=== PATIENT | male | born 1990 | race Caucasian/White ===

== ENCOUNTER 2019-08-29 21:04 | Emergency (ER) | payer SELFPAY ==
[2019-08-29 21:20] VITALS: BP 134/72; PULSE 88; RESP 18; TEMP 36.5; O2SAT 96; BMI 31.4
--- NOTE | 2019-08-29 21:38 | XR_ITS ---
WS: [id number] RIGHT KNEE: 3 VIEW(S) TECHNIQUE: AP, oblique(s) and lateral. HISTORY: injury COMPARISON: None available. No fracture or dislocation. No joint space narrowing or osteophytes. No joint effusion. No soft tissue abnormality. XR/XR knee RT 3V* [id number] IMPRESSION: Normal RIGHT knee.
--- NOTE | 2019-08-29 21:38 | CTR_ITS ---
PROCEDURE INFORMATION: Exam: CT Head Without Contrast Exam date and time: 08/29/2019 9:46 PM Age: 29 years old Clinical indication: Injury or trauma; Fall; Additional info: Seizure TECHNIQUE: Imaging protocol: Computed tomography of the head without contrast. Radiation optimization: All CT scans at this facility use at least one of these dose optimization techniques: automated exposure control; mA and/or kV adjustment per patient size (includes targeted exams where dose is matched to clinical indication); or iterative reconstruction. COMPARISON: No relevant prior studies available. RADIATION DOSE METRICS: Total DLP (mGy-cm): 882.31 FINDINGS: Brain: No acute intracranial hemorrhage or mass effect. No definite acute infarct by CT. MRI could be more sensitive/specific for detection, as clinically directed. Ventricles: Ventricle size is normal for age. Bones/joints: No definite acute skull fracture. Sinuses: Included paranasal sinuses are essentially clear. Mastoid air cells: No significant acute finding. CT/CT head wo con* [id number] IMPRESSION: 1. No acute intracranial hemorrhage or mass effect. 2. No definite acute infarct by CT, see above. 3. Other findings discussed above. Radiation Dose CTDIVOL = (mGy): DLP = 882.31 (mGy-cm)
--- NOTE | 2019-08-29 21:42 | CTR_ITS ---
PROCEDURE INFORMATION: Exam: CT Cervical Spine Without Contrast Exam date and time: 08/29/2019 9:46 PM Age: 29 years old Clinical indication: Injury or trauma; Fall; Initial encounter; Blunt trauma; Injury details: PT ETOH TECHNIQUE: Imaging protocol: Computed tomography images of the cervical spine without contrast. Radiation optimization: All CT scans at this facility use at least one of these dose optimization techniques: automated exposure control; mA and/or kV adjustment per patient size (includes targeted exams where dose is matched to clinical indication); or iterative reconstruction. COMPARISON: No relevant prior studies available. RADIATION DOSE METRICS: Total DLP (mGy-cm): 950.88 FINDINGS: Vertebrae: On axial CT images, no definite acute fracture is visible. Sagittal and coronal reconstructions show no fracture or subluxation. Discs/Spinal canal/Neural foramina: No definite/significant disc herniation by CT, MRI could be more sensitive if clinically indicated. Lungs: No significant acute abnormality in the upper lungs. CT/CT cervical spin wo con* [id number] IMPRESSION: 1. No definite acute fracture or subluxation by CT. 2. Other findings discussed above. Radiation Dose CTDIVOL = (mGy): DLP = 950.88 (mGy-cm)
--- NOTE | 2019-08-29 21:43 | XR_ITS ---
WS: [id number] PORTABLE CHEST HISTORY: fall COMPARISON: None available. Lung volumes are decreased. No consolidation. No pleural effusion or pneumothorax. Cardiac size: Normal. Mediastinum/Aorta: Normal mediastinum. No osseous abnormality seen. XR/XR chest 1V portable [id number] IMPRESSION: Unremarkable portable chest.
[2019-08-29] MEDS: nicotine 21 mg Patch 1 PATCH TRANSDERMA (21:51)
[2019-08-29 22:06] LABS: Basophils # 0.1 10^3/uL (0.0-0.1); Basophils % 0.6 %; Eosinophils # 0.2 10^3/uL (0.0-0.8); Eosinophils % 1.7 %; Hematocrit 45.1 % (42.0-52.0); Hemoglobin 15.1 g/dL (11.7-16.6); Lymphocytes # 2.4 10^3/uL (0.8-4.8); Lymphocytes % 27.3 %; Mean Corpuscular HGB Conc 33.5 g/dL (30.0-36.0); Mean Corpuscular Hemoglobin 30.8 pg (28.0-34.0); Mean Platelet Volume 10.2 fL (7.4-10.4); Monocytes # 0.6 10^3/uL (0.2-0.9); Monocytes % 6.3 %; Neutrophils # 5.5 10^3/uL (1.8-7.7); Neutrophils % 63.6 %; Nucleated Red Blood Cells % 0 %; Platelet Count 233 10^3/cmm (130-400); Red Cell Distribution Width 12.7 % (12.1-15.1); White Blood Count 8.7 10^3/uL (4.0-10.0)
--- NOTE | 2019-08-29 22:10 | ED_ITS ---
Documented by User: Willow Martinez 08/30/19 11:17 HPI - Seizure General: Chief Complaint: Seizure Stated Complaint: ETOH Time Seen by Provider: 08/29/19 21:29 Source: patient and EMS Mode of arrival: EMS Limitations: no limitations History of Present Illness: HPI Narrative: Solo is a 29-year-old male who comes in with the complaint of intoxication, and possibly having a seizure and right knee injury. Patient states that he was at a friend's house and was celebrating his birthday and had a small amount of alcohol. He does not remember falling or injuring his knee. The patient has a history of a previous seizure. He does not take any antiseizure medications. He denies any chest, back or abdominal discomfort. Denies any other complaints. Associated symptoms: Deny chest pain, chills, confusion, diaphoresis, fever(s), malaise or syncope Review of Systems Const: Denies: fever(s), chills, body aches, fatigue, malaise or diaphoresis Eyes: Denies: change in vision, blurry vision, blind spots, photophobia, eye discharge or eye redness ENMT: Denies: throat pain, odynophagia, hoarseness, swelling of lips/tongue, oral sores, ear or mastoid pain, ear discharge, change in hearing or nasal discharge Card: Denies: chest pain, palpitations, irregular heart rhythm, edema, lightheadedness, syncope, pre-syncope, dyspnea on exertion or orthopnea Resp: Denies: dyspnea, productive cough, non-productive cough, wheezing, hemoptysis or chest congestion GI: Denies: abdominal pain, nausea, vomiting, hematemesis, coffee ground emesis, heartburn, diarrhea, constipation, GI cramping, hematochezia or melena : Denies: flank pain, dysuria, urinary frequency, urinary urgency or hematuria Musc: Reports: extremity pain and joint pain; Denies: neck pain, back pain, extremity swelling, joint swelling, joint redness, joint warmth or joint stiffness Skin/Breast: Denies: rash, pruritus, erythema, skin tenderness or jaundice Neuro: Reports: seizure-like activity; Denies: headache(s), numbness in extremities, weakness in extremities, sensory changes, lack of coordination, difficulty walking, dizziness, vertigo, confusion or Slurred speech present Isaias/Lymph: Denies: easy bruising, easy bleeding, petechiae, purpura or enlarged lymph nodes All/Imm: Denies: urticaria, throat swelling, tongue swelling, facial swelling or acute wheezing PFSH ED PFSH: Medical History (Updated 08/29/19 @ 23:17 by Willow Martinez) Seizure Social History (Updated 08/30/19 @ 11:14 by Willow Martinez) Smoking and tobacco status: current every day smoker Alcohol intake: current Physical Exam Const: COMMON NORMALS: no acute distress, patient oriented x3, no limitations, healthy appearing and well nourished GENERAL APPEARANCE: cooperative, well kempt and well developed HENMT: COMMON NORMALS: normocephalic, atraumatic, external ears normal, EAC's normal and Normal external nose present HEAD & SCALP: normal to inspection, normocephalic and atraumatic FACE & SINUS: normal facial exam and face symmetric NOSE: Normal external nose present and Normal nares present EXTERNAL EAR: Yes external ears normal EXTERNAL AUDITORY CANAL: EAC's normal MOUTH: Normal oral and palatal mucosa present, lip normal and tongue normal Eye: COMMON NORMALS: Equal, round and reactive pupils present and conjunctivae normal GENERAL EYE: appearance normal, both eyes and all related structures ALIGNMENT: Yes alignment normal PERIORBITAL: periorbital findings normal EYELID: eyelids normal CONJUNCTIVA: Yes conjunctivae normal SCLERA: sclerae normal PUPIL: Yes Equal, round and reactive pupils present Neck/C-Spine: COMMON NORMALS: full ROM, no lymphadenopathy, supple, no meningeal signs and no JVD GENERAL: Yes normal visual inspection and Yes trachea midline Chest: COMMONS NORMALS: normal inspection of the chest and normal palpation of entire chest wall Resp: COMMON NORMALS: normal respiratory effort, No retractions and No use of accessory muscles EFFORT & INSPECTION: Yes able to speak in complete sentences and Yes symmetric chest movement AUSCULTATION: no crackles, no rales, no rhonchi and no wheezes Cardio: COMMON NORMALS: no JVD, regular rate, regular rhythm, S1 normal heart sound present and S2 normal heart sound present RATE: regular rate RHYTHM: regular rhythm HEART SOUNDS: S1 normal heart sound present, S2 normal heart sound present, no click, no gallops, no murmurs, no rubs and abnormal split S2 GI: COMMON NORMALS: Soft to palpation and No hepatosplenomegaly present PALPATION: Yes Soft to palpation, No Tenderness to palpation present (GI), No Guarding due to palpation present (GI), No Rigid due to palpation, Yes No hepatosplenomegaly present, No Hernia present, No Palpable mass present and No Pulsatile mass present : COMMON NORMALS: Yes no CVA tenderness BLADDER/KIDNEY EXAM: Yes no CVA tenderness Back/Pelvis: COMMON NORMALS: no CVA tenderness, thoracic and lumbar spine normal to inspection, no thoracic nor lumbar tenderness and thoraco-lumbar ROM normal Extremity: COMMON NORMALS: normal to inspection, full ROM, capillary refill normal, no joint enlargement, no clubbing, cyanosis or edema and no calf tenderness Neuro: COMMON NORMALS: patient oriented x3, CN's II-XII intact bilaterally, moves all extremities, no focal motor deficits and no sensory deficits noted MENINGEAL SIGNS: Yes no meningeal signs SPEECH: speech normal Psych: COMMON NORMALS: mental status grossly normal, Normal thought process present, cooperative, normal affect, speech normal and activity/motor behavior normal APPEARANCE: Yes well kempt SPEECH: Yes normal speech THOUGHT PROCESS: Normal thought process present Skin: COMMON NORMALS: no rashes or lesions noted, turgor normal, no jaundice, no petechiae and no mottling GENERAL SKIN EXAM: no rashes or lesions noted and turgor normal Course Vital Signs: Vital signs: Vital Signs Temperature 98.9 F 08/30/19 01:00 Pulse Rate 74 08/30/19 01:00 Respiratory Rate 16 08/30/19 01:00 Blood Pressure 127/62 08/30/19 01:00 Pulse Oximetry 98 08/30/19 00:17 MDM - Seizure [facility] Narrative: Medical decision making narrative: 2322 -patient's mother is here and states that she witnessed him have 1 30 seconc seizure at home. This is likely elicited by his alcohol intake. Here the patient has been cooperative. Because this is his second seizure I am going to have him start on Keppra and follow-up with Dr. Toussaint. His wound was extremely contaminated so I will place him on Keflex to prophylax any wound infections. His mother is here now and she agrees to take him home and look after him. He has started to complain of some back pain so I will add a CT scan of his thoracic and lumbar spine to definitively rule out any fractures but he again denies any chest or abdominal pain. If the CT scans are clear I will discharge him home. Lab Data: Labs: Lab Results 08/29/19 08/29/19 08/29/19 Range/Units 21:54 21:54 22:12 WBC 8.7 (4.0-10.0) 10^3/ uL RBC 4.90 (4.1-5.3) 10^6/u L Hgb 15.1 (11.7-16.6) g/dL Hct 45.1 (42.0-52.0) % MCV 92.0 (80-94) fL MCH 30.8 (28.0-34.0) pg MCHC 33.5 (30.0-36.0) g/dL RDW 12.7 (12.1-15.1) % Plt Count 233 (130-400) 10^3/c mm MPV 10.2 (7.4-10.4) fL Neut % (Auto) 63.6 % Lymph % (Auto) 27.3 % Elbert % (Auto) 6.3 % Eos % (Auto) 1.7 % Baso % (Auto) 0.6 % Neut # (Auto) 5.5 (1.8-7.7) 10^3/u L Lymph # (Auto) 2.4 (0.8-4.8) 10^3/u L Elbert # (Auto) 0.6 (0.2-0.9) 10^3/u L Eos # (Auto) 0.2 (0.0-0.8) 10^3/u L Baso # (Auto) 0.1 (0.0-0.1) 10^3/u L Nucleated RBC % (a uto) 0 % Nucleated RBCs # 0.0 /100WBC Sodium 143 (136-145) mmol/L Potassium 4.3 (3.5-5.1) mmol/L Chloride 106 (98-107) mmol/L Carbon Dioxide 22 (22-29) mmol/L Anion Gap 19.3 H (5-19) BUN 14 (6-20) mg/dL Creatinine 0.7 (0.7-1.2) mg/dL GFR Calculation 133.3 H (90-130) mL/min Glucose 97 (65-115) mg/dL Calculated Osmolal ity 292 (285-295) mOsm/k g Calcium 8.8 (8.5-10.5) mg/dL Magnesium 2.3 (1.7-2.3) mg/dL Total Bilirubin 0.2 (0.15-1.2) mg/dL AST 30 (0-40) U/L ALT 47 H (0-41) U/L Alkaline Phosphata se 63 (40-130) IU/L Creatine Kinase 296 (39-308) U/L Total Protein 7.2 (6.6-8.7) g/dL Albumin 4.7 (3.5-5.2) g/dL Globulin 2.5 (1.3-4.6) g/dL Urine Color Yellow (Yellow) Urine Appearance Clear (CLEAR) Urine pH 5 (5-7) Ur Specific Gravit y 1.015 (1.005-1.030) Urine Protein Neg (Negative) Urine Glucose (UA) Norm (Normal) Urine Ketones Negative (Negative) Urine Blood Neg (Negative) Urine Nitrate Negative (Negative) Urine Bilirubin Neg (NEGATIVE) Urine Urobilinogen Norm (Negative) mg/dL Ur Leukocyte Kristina ase Negative (Negative) Urine RBC None (0-2) /hpf Urine WBC None (0-5) /hpf Ur Squamous Epith Cells Rare (0-5) Urine Bacteria Trace (NONE) Urine Opiates Scre en (Negative) ng/mL Ur Barbiturates Sc reen (Negative) ng/mL Ur Phencyclidine S crn (Negative) ng/mL Ur Amphetamines Sc reen (Negative) ng/mL U Benzodiazepines Scrn (Negative) ng/mL Urine Cocaine Scre en (Negative) ng/mL U Marijuana (THC) Screen (Negative) ng/mL Ethyl Alcohol 213 H (0-10) mg/dL 08/29/19 Range/Units 22:12 WBC (4.0-10.0) 10^3/ uL RBC (4.1-5.3) 10^6/u L Hgb (11.7-16.6) g/dL Hct (42.0-52.0) % MCV (80-94) fL MCH (28.0-34.0) pg MCHC (30.0-36.0) g/dL RDW (12.1-15.1) % Plt Count (130-400) 10^3/c mm MPV (7.4-10.4) fL Neut % (Auto) % Lymph % (Auto) % Elbert % (Auto) % Eos % (Auto) % Baso % (Auto) % Neut # (Auto) (1.8-7.7) 10^3/u L Lymph # (Auto) (0.8-4.8) 10^3/u L Elbert # (Auto) (0.2-0.9) 10^3/u L Eos # (Auto) (0.0-0.8) 10^3/u L Baso # (Auto) (0.0-0.1) 10^3/u L Nucleated RBC % (a uto) % Nucleated RBCs # /100WBC Sodium (136-145) mmol/L Potassium (3.5-5.1) mmol/L Chloride (98-107) mmol/L Carbon Dioxide (22-29) mmol/L Anion Gap (5-19) BUN (6-20) mg/dL Creatinine (0.7-1.2) mg/dL GFR Calculation (90-130) mL/min Glucose (65-115) mg/dL Calculated Osmolal ity (285-295) mOsm/k g Calcium (8.5-10.5) mg/dL Magnesium (1.7-2.3) mg/dL Total Bilirubin (0.15-1.2) mg/dL AST (0-40) U/L ALT (0-41) U/L Alkaline Phosphata se (40-130) IU/L Creatine Kinase (39-308) U/L Total Protein (6.6-8.7) g/dL Albumin (3.5-5.2) g/dL Globulin (1.3-4.6) g/dL Urine Color (Yellow) Urine Appearance (CLEAR) Urine pH (5-7) Ur Specific Gravit y (1.005-1.030) Urine Protein (Negative) Urine Glucose (UA) (Normal) Urine Ketones (Negative) Urine Blood (Negative) Urine Nitrate (Negative) Urine Bilirubin (NEGATIVE) Urine Urobilinogen (Negative) mg/dL Ur Leukocyte Kristina ase (Negative) Urine RBC (0-2) /hpf Urine WBC (0-5) /hpf Ur Squamous Epith Cells (0-5) Urine Bacteria (NONE) Urine Opiates Scre en Negative (Negative) ng/mL Ur Barbiturates Sc reen Negative (Negative) ng/mL Ur Phencyclidine S crn Negative (Negative) ng/mL Ur Amphetamines Sc reen Negative (Negative) ng/mL U Benzodiazepines Scrn Negative (Negative) ng/mL Urine Cocaine Scre en Negative (Negative) ng/mL U Marijuana (THC) Screen Negative (Negative) ng/mL Ethyl Alcohol (0-10) mg/dL Imaging Data^: CXR: Attestation: I personally reviewed and interpreted this imaging study as follows: My impression: No acute cardiopulmonary findings. No sign of aspiration. Right Knee: Radiologist's impression: No acute fractures dislocations CT Head: Radiologist's impression: [address] [address] [address] Scan Report Signed Patient: Solo Diana Unit #: [id number] : 1990 Age/Sex: 29 / M ADM Date: 08/29/19 Loc: ER Room/Bed: Attending Dr: Ordering Provider/Ordering MD: Willow Martinez DO Date of Service: 08/29/19 Procedure(s): CT head wo con* [id number] Accession Number(s): [id number] Report Number: [id number] PROCEDURE INFORMATION: Exam: CT Head Without Contrast Exam date and time: 08/29/2019 9:46 PM Age: 29 years old Clinical indication: Injury or trauma; Fall; Additional info: Seizure TECHNIQUE: Imaging protocol: Computed tomography of the head without contrast. Radiation optimization: All CT scans at this facility use at least one of these dose optimization techniques: automated exposure control; mA and/or kV adjustment per patient size (includes targeted exams where dose is matched to clinical indication); or iterative reconstruction. COMPARISON: No relevant prior studies available. RADIATION DOSE METRICS: Total DLP (mGy-cm): 882.31 FINDINGS: Brain: No acute intracranial hemorrhage or mass effect. No definite acute infarct by CT. MRI could be more sensitive/specific for detection, as clinically directed. Ventricles: Ventricle size is normal for age. Bones/joints: No definite acute skull fracture. Sinuses: Included paranasal sinuses are essentially clear. Mastoid air cells: No significant acute finding. CT/CT head wo con* [id number] IMPRESSION: 1. No acute intracranial hemorrhage or mass effect. 2. No definite acute infarct by CT, see above. 3. Other findings discussed above. Radiation Dose CTDIVOL = (mGy): DLP = 882.31 (mGy-cm) Dictated By: Julius Torres MD Signed By: Julius Torres MD Signed Date/Time: 08/29/192216 DD/ 15 CT C-spine: Radiologist's impression: [address] [address] [address] Scan Report Signed Patient: Solo Diana Unit #: [id number] : 1990 Age/Sex: 29 / M ADM Date: 08/29/19 Loc: ER Room/Bed: Attending Dr: Ordering Provider/Ordering MD: Willow Martinez DO Date of Service: 08/29/19 Procedure(s): CT cervical spin wo con* [id number] Accession Number(s): [id number] Report Number: [id number] PROCEDURE INFORMATION: Exam: CT Cervical Spine Without Contrast Exam date and time: 08/29/2019 9:46 PM Age: 29 years old Clinical indication: Injury or trauma; Fall; Initial encounter; Blunt trauma; Injury details: PT ETOH TECHNIQUE: Imaging protocol: Computed tomography images of the cervical spine without contrast. Radiation optimization: All CT scans at this facility use at least one of these dose optimization techniques: automated exposure control; mA and/or kV adjustment per patient size (includes targeted exams where dose is matched to clinical indication); or iterative reconstruction. COMPARISON: No relevant prior studies available. RADIATION DOSE METRICS: Total DLP (mGy-cm): 950.88 FINDINGS: Vertebrae: On axial CT images, no definite acute fracture is visible. Sagittal and coronal reconstructions show no fracture or subluxation. Discs/Spinal canal/Neural foramina: No definite/significant disc herniation by CT, MRI could be more sensitive if clinically indicated. Lungs: No significant acute abnormality in the upper lungs. CT/CT cervical spin wo con* [id number] IMPRESSION: 1. No definite acute fracture or subluxation by CT. 2. Other findings discussed above. Radiation Dose CTDIVOL = (mGy): DLP = 950.88 (mGy-cm) Dictated By: Julius Torres MD Signed By: Julius Torres MD Signed Date/Time: 08/29/192220 DD/ 19 CT Thoracic Spine: Radiologist's impression: [address] [address] [address] Scan Report Signed Patient: Solo Diana Unit #: [id number] : 1990 Age/Sex: 29 / M ADM Date: 08/29/19 Loc: ER Room/Bed: Attending Dr: Ordering Provider/Ordering MD: Willow Martinez DO Date of Service: 08/29/19 Procedure(s): CT thoracic spin wo con* [id number] Accession Number(s): [id number] Report Number: [id number] PROCEDURE INFORMATION: Exam: CT Thoracic Spine Without Contrast Exam date and time: 08/29/2019 11:33 PM Age: 29 years old Clinical indication: Injury or trauma; Fall; Initial encounter; Blunt trauma (contusions or hematomas) TECHNIQUE: Imaging protocol: Computed tomography images of the thoracic spine without contrast. Radiation optimization: All CT scans at this facility use at least one of these dose optimization techniques: automated exposure control; mA and/or kV adjustment per patient size (includes targeted exams where dose is matched to clinical indication); or iterative reconstruction. COMPARISON: No relevant prior studies available. RADIATION DOSE METRICS: Total DLP (mGy-cm): 2713.82 FINDINGS: Vertebrae: On axial CT images, no definite acute fracture is visible. Sagittal and coronal reconstructions show no fracture or subluxation. Discs/Spinal canal/Neural foramina: No definite/significant disc herniation by CT, MRI could be more sensitive if clinically indicated. Soft tissues: No significant acute finding. CT/CT thoracic spin wo con* [id number] IMPRESSION: 1. No definite acute fracture or subluxation by CT. 2. Other findings discussed above. Radiation Dose CTDIVOL = (mGy): DLP = 2713.82 (mGy-cm) Dictated By: Julius Torres MD Signed By: Julius Torres MD Signed Date/Time: 08/30/1927 DD/ CT Lumbar Spine: Radiologist's impression: [address] [address] [address] Scan Report Signed Patient: Solo Diana Unit #: [id number] : 1990 Age/Sex: 29 / M ADM Date: 08/29/19 Loc: ER Room/Bed: Attending Dr: Ordering Provider/Ordering MD: Willow Martinez DO Date of Service: 08/29/19 Procedure(s): CT lumbar spine wo con* [id number] Accession Number(s): [id number] Report Number: [id number] PROCEDURE INFORMATION: Exam: CT Lumbar Spine Without Contrast Exam date and time: 08/29/2019 11:33 PM Age: 29 years old Clinical indication: Injury or trauma; Fall; Initial encounter; Blunt trauma (contusions or hematomas) TECHNIQUE: Imaging protocol: Computed tomography images of the lumbar spine without contrast. Radiation optimization: All CT scans at this facility use at least one of these dose optimization techniques: automated exposure control; mA and/or kV adjustment per patient size (includes targeted exams where dose is matched to clinical indication); or iterative reconstruction. COMPARISON: No relevant prior studies available. RADIATION DOSE METRICS: Total DLP (mGy-cm): 2502.02 FINDINGS: Vertebrae: On axial CT images, no definite acute fracture is visible. Sagittal and coronal reconstructions show no fracture or subluxation. Discs/Spinal canal/Neural foramina: Mild broad-based bulging of the disc annulus at L3-L4, and L4-L5. No definite/significant focal disc herniation by CT, MRI could be more sensitive/specific if clinically indicated. Soft tissues: No significant acute finding. CT/CT lumbar spine wo con* [id number] IMPRESSION: 1. No definite acute fracture or subluxation by CT. 2. Other findings discussed above. Radiation Dose CTDIVOL = (mGy): DLP = 2502.02 (mGy-cm) Dictated By: Julius Torres MD Signed By: Julius Torres MD Signed Date/Time: 08/30/1937 DD/ 0037 EKG Data^: EKG 1: Attestation: I personally reviewed and interpreted this EKG as follows: EKG interpretation date: 08/29/19 EKG interpretation time: 23:28 Interpretation: Normal sinus rhythm at 80 beats a minute, diffuse ST segment elevation consistent with benign early repolarization. No CO depression to suggest pericarditis. No acute findings. Discharge Plan Discharge Patient Disposition: Home, Self-Care Clinical Impression: Generalized seizure, Laceration Alcohol intoxication Qualifiers: Complication of substance-induced condition: with unspecified complication Qualified Code(s): F10.929 - Alcohol use, unspecified with intoxication, unspecified Condition: Stable Prescriptions: New Keflex 500 mg capsule 500 mg PO Q6H 10 Days Qty: 40 RF: 0 Keppra 500 mg tablet 500 mg PO Q12H 14 Days Qty: 28 RF: 0 Referrals: Vivian Toussaint MD [Physician] - 1-3 days Grant Dove FNP [Primary Care Provider] - Discharge Diet: Advance as tolerated Discharge Activity: Limit activity as instructed Patient Instructions: Laceration (ED), Alcohol Intoxication (ED), Recurrent Seizures Adult (ED) Activity Restrictions/Additional Instructions: Please return to the ER immediately for any of the signs or symptoms listed on your discharge instruction sheets, worsening/changing of your symptoms, you are not getting better as quickly as expected, or for ANY other cause or concerns. Please return to the ER in 10 to 14 days for suture removal. You may also follow-up with your regular doctor if necessary. There was a good deal of contamination in your wound so be certain to take the antibiotics as I have prescribed you. Return to the ER sooner for swelling, redness or drainage around your wounds or for any other cause for concern. No driving, no working at heights, no tub baths, no swimming alone or anything else that would put you at risk should you have another seizure. Be certain to follow-up with Dr. Toussaint as she will clear you to return to driving and regular activities. Stand Alone Forms: Work/School Release Discharge Date/Time: 08/30/19 01:02 Coding Level of Care Code ED [employer] for Chg Fwd Exam Comprehensive Documented by User: SEB Ortiz 08/29/19 22:34 HPI - Seizure General: Chief Complaint: Seizure Stated Complaint: ETOH Time Seen by Provider: 08/29/19 21:29 PFSH ED PFSH: Medical History (Updated 08/29/19 @ 23:17 by Willow Martinez) Seizure Social History (Updated 08/30/19 @ 11:14 by Willow Martinez) Smoking and tobacco status: current every day smoker Alcohol intake: current Procedures Laceration Laceration 1: Site: lower extremity (knee) Side (If applicable): right Size (cm): 1.0 Description: flap Depth: simple, single layer Local Anesthetic: lidocaine 1% and with epi Amount of anesthesia used (mL): 1.0 Pre-repair: wound explored and irrigated extensively Skin layer closed with: nylon Size (cm): 4-0 Number of sutures: 3 Technique: simple, interrupted Laceration 2: Site: lower extremity (knee) Side (If applicable): right Size (cm): 2.0 Description: irregular Depth: simple, single layer Local Anesthetic: lidocaine 1% and with epi Amount of anesthesia used (mL): 2.0 Pre-repair: wound explored and irrigated extensively Skin layer closed with: nylon Size (cm): 4-0 Number of sutures: 4 Technique: simple, interrupted Course Vital Signs: Vital signs: Vital Signs Temperature 98.9 F 08/30/19 01:00 Pulse Rate 74 08/30/19 01:00 Respiratory Rate 16 08/30/19 01:00 Blood Pressure 127/62 08/30/19 01:00 Pulse Oximetry 98 08/30/19 00:17 MDM - Seizure Lab Data: Labs: Lab Results 08/29/19 08/29/19 08/29/19 Range/Units 21:54 21:54 22:12 WBC 8.7 (4.0-10.0) 10^3/ uL RBC 4.90 (4.1-5.3) 10^6/u L Hgb 15.1 (11.7-16.6) g/dL Hct 45.1 (42.0-52.0) % MCV 92.0 (80-94) fL MCH 30.8 (28.0-34.0) pg MCHC 33.5 (30.0-36.0) g/dL RDW 12.7 (12.1-15.1) % Plt Count 233 (130-400) 10^3/c mm MPV 10.2 (7.4-10.4) fL Neut % (Auto) 63.6 % Lymph % (Auto) 27.3 % Elbert % (Auto) 6.3 % Eos % (Auto) 1.7 % Baso % (Auto) 0.6 % Neut # (Auto) 5.5 (1.8-7.7) 10^3/u L Lymph # (Auto) 2.4 (0.8-4.8) 10^3/u L Elbert # (Auto) 0.6 (0.2-0.9) 10^3/u L Eos # (Auto) 0.2 (0.0-0.8) 10^3/u L Baso # (Auto) 0.1 (0.0-0.1) 10^3/u L Nucleated RBC % (a uto) 0 % Nucleated RBCs # 0.0 /100WBC Sodium 143 (136-145) mmol/L Potassium 4.3 (3.5-5.1) mmol/L Chloride 106 (98-107) mmol/L Carbon Dioxide 22 (22-29) mmol/L Anion Gap 19.3 H (5-19) BUN 14 (6-20) mg/dL Creatinine 0.7 (0.7-1.2) mg/dL GFR Calculation 133.3 H (90-130) mL/min Glucose 97 (65-115) mg/dL Calculated Osmolal ity 292 (285-295) mOsm/k g Calcium 8.8 (8.5-10.5) mg/dL Magnesium 2.3 (1.7-2.3) mg/dL Total Bilirubin 0.2 (0.15-1.2) mg/dL AST 30 (0-40) U/L ALT 47 H (0-41) U/L Alkaline Phosphata se 63 (40-130) IU/L Creatine Kinase 296 (39-308) U/L Total Protein 7.2 (6.6-8.7) g/dL Albumin 4.7 (3.5-5.2) g/dL Globulin 2.5 (1.3-4.6) g/dL Urine Color Yellow (Yellow) Urine Appearance Clear (CLEAR) Urine pH 5 (5-7) Ur Specific Gravit y 1.015 (1.005-1.030) Urine Protein Neg (Negative) Urine Glucose (UA) Norm (Normal) Urine Ketones Negative (Negative) Urine Blood Neg (Negative) Urine Nitrate Negative (Negative) Urine Bilirubin Neg (NEGATIVE) Urine Urobilinogen Norm (Negative) mg/dL Ur Leukocyte Kristina ase Negative (Negative) Urine RBC None (0-2) /hpf Urine WBC None (0-5) /hpf Ur Squamous Epith Cells Rare (0-5) Urine Bacteria Trace (NONE) Urine Opiates Scre en (Negative) ng/mL Ur Barbiturates Sc reen (Negative) ng/mL Ur Phencyclidine S crn (Negative) ng/mL Ur Amphetamines Sc reen (Negative) ng/mL U Benzodiazepines Scrn (Negative) ng/mL Urine Cocaine Scre en (Negative) ng/mL U Marijuana (THC) Screen (Negative) ng/mL Ethyl Alcohol 213 H (0-10) mg/dL 08/29/19 Range/Units 22:12 WBC (4.0-10.0) 10^3/ uL RBC (4.1-5.3) 10^6/u L Hgb (11.7-16.6) g/dL Hct (42.0-52.0) % MCV (80-94) fL MCH (28.0-34.0) pg MCHC (30.0-36.0) g/dL RDW (12.1-15.1) % Plt Count (130-400) 10^3/c mm MPV (7.4-10.4) fL Neut % (Auto) % Lymph % (Auto) % Elbert % (Auto) % Eos % (Auto) % Baso % (Auto) % Neut # (Auto) (1.8-7.7) 10^3/u L Lymph # (Auto) (0.8-4.8) 10^3/u L Elbert # (Auto) (0.2-0.9) 10^3/u L Eos # (Auto) (0.0-0.8) 10^3/u L Baso # (Auto) (0.0-0.1) 10^3/u L Nucleated RBC % (a uto) % Nucleated RBCs # /100WBC Sodium (136-145) mmol/L Potassium (3.5-5.1) mmol/L Chloride (98-107) mmol/L Carbon Dioxide (22-29) mmol/L Anion Gap (5-19) BUN (6-20) mg/dL Creatinine (0.7-1.2) mg/dL GFR Calculation (90-130) mL/min Glucose (65-115) mg/dL Calculated Osmolal ity (285-295) mOsm/k g Calcium (8.5-10.5) mg/dL Magnesium (1.7-2.3) mg/dL Total Bilirubin (0.15-1.2) mg/dL AST (0-40) U/L ALT (0-41) U/L Alkaline Phosphata se (40-130) IU/L Creatine Kinase (39-308) U/L Total Protein (6.6-8.7) g/dL Albumin (3.5-5.2) g/dL Globulin (1.3-4.6) g/dL Urine Color (Yellow) Urine Appearance (CLEAR) Urine pH (5-7) Ur Specific Gravit y (1.005-1.030) Urine Protein (Negative) Urine Glucose (UA) (Normal) Urine Ketones (Negative) Urine Blood (Negative) Urine Nitrate (Negative) Urine Bilirubin (NEGATIVE) Urine Urobilinogen (Negative) mg/dL Ur Leukocyte Kristina ase (Negative) Urine RBC (0-2) /hpf Urine WBC (0-5) /hpf Ur Squamous Epith Cells (0-5) Urine Bacteria (NONE) Urine Opiates Scre en Negative (Negative) ng/mL Ur Barbiturates Sc reen Negative (Negative) ng/mL Ur Phencyclidine S crn Negative (Negative) ng/mL Ur Amphetamines Sc reen Negative (Negative) ng/mL U Benzodiazepines Scrn Negative (Negative) ng/mL Urine Cocaine Scre en Negative (Negative) ng/mL U Marijuana (THC) Screen Negative (Negative) ng/mL Ethyl Alcohol (0-10) mg/dL Discharge Plan Discharge Patient Disposition: Home, Self-Care Clinical Impression: Generalized seizure, Laceration Alcohol intoxication Qualifiers: Complication of substance-induced condition: with unspecified complication Qualified Code(s): F10.929 - Alcohol use, unspecified with intoxication, unspecified Condition: Stable Prescriptions: New Keflex 500 mg capsule 500 mg PO Q6H 10 Days Qty: 40 RF: 0 Keppra 500 mg tablet 500 mg PO Q12H 14 Days Qty: 28 RF: 0 Referrals: Vivian Toussaint MD [Physician] - 1-3 days Grant Dove FNP [Primary Care Provider] - Discharge Diet: Advance as tolerated Discharge Activity: Limit activity as instructed Patient Instructions: Laceration (ED), Alcohol Intoxication (ED), Recurrent Seizures Adult (ED) Activity Restrictions/Additional Instructions: Please return to the ER immediately for any of the signs or symptoms listed on your discharge instruction sheets, worsening/changing of your symptoms, you are not getting better as quickly as expected, or for ANY other cause or concerns. Please return to the ER in 10 to 14 days for suture removal. You may also follow-up with your regular doctor if necessary. There was a good deal of co ntamination in your wound so be certain to take the antibiotics as I have prescribed you. Return to the ER sooner for swelling, redness or drainage around your wounds or for any other cause for concern. No driving, no working at heights, no tub baths, no swimming alone or anything else that would put you at risk should you have another seizure. Be certain to follow-up with Dr. Toussaint as she will clear you to return to driving and regular activities. Stand Alone Forms: Work/School Release Discharge Date/Time: 08/30/19 01:02 Coding Level of Care Code ED Stone And Concrete Washer for Irvin Fwd Exam Comprehensive
[2019-08-29 22:24] LABS: Alanine Aminotransferase 47 U/L (0-41); Albumin Level 4.7 g/dL (3.5-5.2); Alcohol Level 213 mg/dL (0-10); Alkaline Phosphatase 63 IU/L (40-130); Anion Gap 19.3 (5-19); Aspartate Amino Transferase 30 U/L (0-40); Blood Urea Nitrogen 14 mg/dL (6-20); Calcium 8.8 mg/dL (8.5-10.5); Carbon Dioxide 22 mmol/L (22-29); Chloride 106 mmol/L (98-107); Creatine Phosphokinase 296 U/L (39-308); Globulin 2.5 g/dL (1.3-4.6); Glomerular Filtration Rate 133.3 mL/min (90-130); Glucose 97 mg/dL (65-115); Magnesium 2.3 mg/dL (1.7-2.3); Osmolality Calculated 292 mOsm/kg (285-295); Potassium 4.3 mmol/L (3.5-5.1); Sodium 143 mmol/L (136-145); Total Bilirubin 0.2 mg/dL (0.15-1.2); Total Protein 7.2 g/dL (6.6-8.7)
[2019-08-29 22:39] LABS: Urine Appearance Clear (CLEAR); Urine Color Yellow (Yellow); pH Urine 5 (5-7)
[2019-08-29 22:40] LABS: Bacteria Urine TRACE; Bilirubin Urine Neg (NEGATIVE); Blood Urine Neg (Negative); Glucose Urine UA Norm (Normal); Ketones Urine Negative (Negative); Leukocyte Esterase Urine Negative (Negative); Nitrate Urine Negative (Negative); Protein Urine Neg (Negative); Specific Gravity, Urine 1.015 (1.005-1.030); Squamous Epithelial Cell Urine RARE (0-5); Urobilinogen Urine Norm (Negative)
[2019-08-29 22:47] LABS: Amphetamines Screen Urine Negative (Negative); Barbiturates Screen Urine Negative (Negative); Benzodiazepines Screen Urine Negative (Negative); Cocaine Screen Urine Negative (Negative); Opiate Screen Urine Negative (Negative); PCP Screen Urine Negative (Negative); THC Screen Urine Negative (Negative)
--- NOTE | 2019-08-29 23:15 | ECG_ITS ---
[facility] Test Date: 2019-08-29 Pat Name: Solo Diana Department: Room: Gender: Male Components Engineer: : 1990 Requested By: Willow Mehta Order Number: [id number] Monk MD: Mary Robles M.D. Measurements Intervals [place] Rate: 80 P: 39 OH: 181 QRS: 48 QRSD: 98 T: 18 QT: 348 QTc: 403 Interpretive Statements SINUS RHYTHM ST ELEVATION, PROBABLY EARLY REPOLARIZATION [ST ELEVATION WITH NORMALLY INFLECTED T WAVE] No previous ECG available for comparison Electronically Signed On 08-30-2019 17:09:11 CDT by Mary Robles M.D. [id number]
--- NOTE | 2019-08-29 23:22 | CTR_ITS ---
PROCEDURE INFORMATION: Exam: CT Thoracic Spine Without Contrast Exam date and time: 08/29/2019 11:33 PM Age: 29 years old Clinical indication: Injury or trauma; Fall; Initial encounter; Blunt trauma (contusions or hematomas) TECHNIQUE: Imaging protocol: Computed tomography images of the thoracic spine without contrast. Radiation optimization: All CT scans at this facility use at least one of these dose optimization techniques: automated exposure control; mA and/or kV adjustment per patient size (includes targeted exams where dose is matched to clinical indication); or iterative reconstruction. COMPARISON: No relevant prior studies available. RADIATION DOSE METRICS: Total DLP (mGy-cm): 2713.82 FINDINGS: Vertebrae: On axial CT images, no definite acute fracture is visible. Sagittal and coronal reconstructions show no fracture or subluxation. Discs/Spinal canal/Neural foramina: No definite/significant disc herniation by CT, MRI could be more sensitive if clinically indicated. Soft tissues: No significant acute finding. CT/CT thoracic spin wo con* [id number] IMPRESSION: 1. No definite acute fracture or subluxation by CT. 2. Other findings discussed above. Radiation Dose CTDIVOL = (mGy): DLP = 2713.82 (mGy-cm)
--- NOTE | 2019-08-29 23:22 | CTR_ITS ---
PROCEDURE INFORMATION: Exam: CT Lumbar Spine Without Contrast Exam date and time: 08/29/2019 11:33 PM Age: 29 years old Clinical indication: Injury or trauma; Fall; Initial encounter; Blunt trauma (contusions or hematomas) TECHNIQUE: Imaging protocol: Computed tomography images of the lumbar spine without contrast. Radiation optimization: All CT scans at this facility use at least one of these dose optimization techniques: automated exposure control; mA and/or kV adjustment per patient size (includes targeted exams where dose is matched to clinical indication); or iterative reconstruction. COMPARISON: No relevant prior studies available. RADIATION DOSE METRICS: Total DLP (mGy-cm): 2502.02 FINDINGS: Vertebrae: On axial CT images, no definite acute fracture is visible. Sagittal and coronal reconstructions show no fracture or subluxation. Discs/Spinal canal/Neural foramina: Mild broad-based bulging of the disc annulus at L3-L4, and L4-L5. No definite/significant focal disc herniation by CT, MRI could be more sensitive/specific if clinically indicated. Soft tissues: No significant acute finding. CT/CT lumbar spine wo con* [id number] IMPRESSION: 1. No definite acute fracture or subluxation by CT. 2. Other findings discussed above. Radiation Dose CTDIVOL = (mGy): DLP = 2502.02 (mGy-cm)
[2019-08-29] MEDS: cephALEXin 500 mg Capsule PO (23:54)
[2019-08-29] MEDS: levETIRAcetam 500 mg Tablet PO (23:54)
[2019-08-30 00:17] VITALS: BP 129/68; PULSE 68; RESP 18; O2SAT 98
[2019-08-30 01:00] VITALS: BP 127/62; PULSE 74; RESP 16; TEMP 37.2
== END 2019-08-30 01:02 | disposition home or self-care (01) ==
PROVIDERS: Emergency Provider Emergency Medicine; PCP Nurse Practitioner Family
DX: G40.89 Other seizures (principal); F10.929 Alcohol use, unspecified with intoxication, unspecified; S81.011A Laceration without foreign body, right knee, initial encounter; F17.210 Nicotine dependence, cigarettes, uncomplicated; X58.XXXA Exposure to other specified factors, initial encounter
CPT/HCPCS: 12002; 12345; 36415; 70450; 71045; 72125; 72128; 72131; 73562; 80053; 80306; 80307; 81001; 82550; 83735; 85025; 93005; 99282; 99284; J2001

== ENCOUNTER 2021-10-08 11:13 | Emergency (ER) | payer SELFPAY ==
--- NOTE | 2021-10-08 11:23 | XRR_ITS ---
PROCEDURE INFORMATION: Exam: XR Left Ankle Exam date and time: 10/08/2021 11:34 AM Age: 31 years old Clinical indication: Injury or trauma; Other: Rolled ankle; Sprain or strain; Left; Injury date: Yesterday; Additional info: Injury/trauma TECHNIQUE: Imaging protocol: Radiologic exam of the Left ankle. Views: 3 or more views. COMPARISON: No relevant prior studies available. FINDINGS: Bones/joints: Negative for acute bony abnormality. Soft tissues: Normal. XR/XR ankle LT min 3V* [id number] IMPRESSION: No acute findings.
[2021-10-08 11:41] VITALS: BP 168/98; PULSE 109; RESP 18; TEMP 36.3; O2SAT 98; BMI 321.3
--- NOTE | 2021-10-08 11:46 | ED_ITS ---
HPI - Extremity Injury (Lower) General: Chief Complaint: Extremity Injury, Lower Stated Complaint: left ankle injury Time Seen by Provider: 10/08/21 11:45 Source: patient Mode of arrival: ambulatory Limitations: no limitations History of Present Illness: Patient is a 31-year-old male who presents to ED today with a complaint of a left ankle injury that he sustained yesterday after rolling it . Patient has been ambulatory on the extremity but began noticing some bruising today so wanted to get it evaluated. complaint: ankle injury Onset (ago): day(s) (yesterday) Injury: Left: ankle and foot Type of Injury: inversion Severity: moderate Relieving factors: immobilization Exacerbating factors: weight bearing, movement and palpation Associated symptoms: Reports no associated symptoms Other symptoms: none Review of Systems Musc: Reports: extremity pain (L foot) and joint pain (L ankle) Neuro: Denies: numbness in extremities or sensory changes [facility] PFSH: Medical History Seizure Social History Smoking and tobacco status: current every day smoker Alcohol intake: current Physical Exam Const: COMMON NORMALS: no acute distress, patient oriented x3, no limitations and alert Extremity: COMMON NORMALS: normal to inspection GENERAL: Yes normal exam except as noted LEFT LOWER EXTREMITY: Yes ankle joint and Yes foot & digits OTHER: pt has localized tenderness to lateral malleolus and a little tenderness to base of 5th metatarsal; no bony deformity; very minimal swelling present; NV intact Neuro: COMMON NORMALS: patient oriented x3, moves all extremities, no focal motor deficits and no sensory deficits noted SENSORIUM/ORIENTATION: Yes alert Course Vital Signs: Vital signs: Vital Signs Temperature 97.3 F L 10/08/21 11:41 Pulse Rate 109 H 10/08/21 11:41 Respiratory Rate 18 10/08/21 11:41 Blood Pressure 168/98 10/08/21 11:41 Pulse Oximetry 98 10/08/21 11:41 Oxygen Delivery Me thod 10/08/21 11:41 MDM - Extremity Injury (Lower) Medical Decision Making XR L ankle negative. I can visualize 5th metatarsal on these films as well and appears normal. He has been ambulatory but will give him JESSEE wrap/crutches with instructions for weight bearing as tolerated/RICE therapy and follow up with PCP in 1-2 weeks for continued pain. Discharge Plan Discharge Patient Disposition: Home Clinical Impression: Left ankle sprain Qualifiers: Encounter type: initial encounter Involved ligament of ankle: unspecified ligament Qualified Code(s): S93.402A - Sprain of unspecified ligament of left ankle, initial encounter Condition: Stable Prescriptions: No Action No Known Home Medications Discharge Orders: Discharge ED (Routine); Ordered 10/08/21 Ordered By: Hailee Frias Referrals: Grant Dove FNP [Primary Care Provider] - Patient Instructions: Ankle Sprain (DC), RICE Therapy Stand Alone Forms: Work/School Release Coding Level of Care Code ED Hatch Tender for Irvin Kay
== END 2021-10-08 12:30 | disposition home or self-care (01) ==
PROVIDERS: Emergency Provider Physician Assistant; PCP Nurse Practitioner Family
DX: S93.402A Sprain of unspecified ligament of left ankle, initial encounter (principal); F17.210 Nicotine dependence, cigarettes, uncomplicated; X50.1XXA Overexertion from prolonged static or awkward postures, initial encounter
CPT/HCPCS: 73610; 99283; E0114

== ENCOUNTER 2022-10-12 11:55 | Emergency (ER) | payer SELFPAY ==
[2022-10-12 12:06] VITALS: BP 154/91; PULSE 83; RESP 16; TEMP 36.6; O2SAT 100; BMI 34.2
--- NOTE | 2022-10-12 14:08 | ED_ITS ---
HPI - Extremity Problem General: Chief complaint: Extremity Problem,Nontraumatic Stated complaint: groin pain Time Seen by Provider: 10/12/22 13:31 History of Present Illness: 32-year-old male reports that he has had a sliding right inguinal hernia for approximately 4 and half years. He did have consultation to have it repaired about 4 years ago but it was going to be $8000. He reports he is just been dealing with it. Lately over the last few months it is becoming more painful at work it bulges out and sometimes becomes hard. He has to slowly push it back and. He came to the emergency department hoping that there is something else we could do. Unfortunately, the hernia is not out and I have explained to him what the emergent indications are for surgery. I have explained that I would be happy to provide a referral and a few days of pain medication. I also explained findings that would be worrisome for a hernia emergency such as strangulation or incarceration. He was interested in a referral to general surgery to talk about surgical repair again. I have placed the order to case management. Dr. Kim was on today. Review of Systems Narrative: Pertinent Positives: Intermittent sliding right inguinal hernia, sometimes hard, sometimes painful Pertinent Negatives: No vomiting, severe constipation, diarrhea, obstipation, redness overlying the hernia, fever, systemic symptoms. 12 Point ROS performed and otherwise negative unless stated here or HPI. [facility] ED PFSH: Medical History Seizure Social History Smoking and tobacco status: current every day smoker Alcohol intake: current Physical Exam Const: COMMON NORMALS: no limitations, alert and well nourished EXAM LIMITATIONS: no altered mental status GENERAL APPEARANCE: cooperative, comfortable and well kempt NUTRITIONAL APPEARANCE: obese Cardio: COMMON NORMALS: regular rate and regular rhythm RATE: regular rate RHYTHM: regular rhythm GI: COMMON NORMALS: Soft to palpation and non-tender INSPECTION: No abdominal distension, No visible herniation, No visible pulsation, No visible peristalsis, No Localized GI swelling present and No GI erythema present PALPATION: Yes Soft to palpation and No Guarding due to palpation present (GI) OTHER: I did inspect the inguinal region. I palpated through to the inguinal ring. The hernia is currently not out while the patient is supine. There is some tenderness in the inguinal canal. No overlying erythema. Nothing in the scrotum. No localized adenopathy in this region. Extremity: COMMON NORMALS: normal to inspection Neuro: COMMON NORMALS: moves all extremities, no focal motor deficits and no sensory deficits noted SENSORIUM/ORIENTATION: Yes alert SPEECH: speech normal Psych: APPEARANCE: Yes well kempt Skin: COMMON NORMALS: no rashes or lesions noted, turgor normal and no jaundice GENERAL SKIN EXAM: no rashes or lesions noted and turgor normal Course Vital Signs: Vital signs: Vital Signs Temperature 97.9 F 10/12/22 12:06 Pulse Rate 83 10/12/22 12:06 Respiratory Rate 16 10/12/22 12:06 Blood Pressure 154/91 10/12/22 12:06 Pulse Oximetry 100 10/12/22 12:06 Oxygen Delivery Me thod Room Air 10/12/22 12:06 MDM - Extremity (Nontraumatic) Medical Decision Making Patient has a longstanding, sliding right inguinal hernia. This is starting to interfere with his work. There is no strangulation or incarceration today. There are no signs of bowel obstruction. There is no signs of any acute infection. Discussed all of this with patient. Patient will be referred to general surgery. I have given him a work note for limiting lifting to 30 pounds. At this time, no further work-up indicated. Discharge Plan Discharge Patient Disposition: Home Clinical Impression: Hernia, inguinal, right Condition: Stable Prescriptions: New hydrocodone-acetaminophen 5-325 mg tablet 1 tab PO Q8H PRN (Reason: pain) 3 Days Qty: 9 0RF No Action No Known Home Medications Discharge Orders: Discharge ED (Routine); Ordered 10/12/22 Ordered By: Greg Hernandez Referrals: Bob Kim DO [Physician] - (Right inguinal hernia) Grant Dove FNP [Primary Care Provider] - Discharge Diet: Usual diet Discharge Activity: Limit activity as instructed Patient Instructions: Inguinal Hernia (ED), Opioid Safety, Pain Management Activity Restrictions/Additional Instructions: Limit lifting to 30 pounds. Wear an inguinal hernia belt and supportive/tight underwear. If the hernia comes out, Lay on your back and gently push it back in. If you are unable to push the hernia in that you will need to come to the emergency department. If the inguinal hernia comes out and starts causing severe pain or redness over the skin, then it is emergency. You need to make a consultation with a general surgeon to talk about inguinal hernia repair as these do not get better on their own. Coding Level of Care Code ED Supervisor Estimator And Drafter for Irvin Kay
--- NOTE | 2022-10-12 14:26 | DCPLANNER ---
Addendum entered by Rachel Johns 10/16/22 10:23: affiliate marketing manager received the following message from the general surgery clinic regarding follow up appointment: mailing patient fa info due to balance.. Will schedule once fa clears him. Original Note: affiliate marketing manager had message to schedule a follow up appointment for patient with general surgery. affiliate marketing manager sent patients information to the front office staff at general surgery. Patients information will be printed and reviewed. Clinic will call patient with appointment information.
== END 2022-10-12 14:33 | disposition home or self-care (01) ==
PROVIDERS: Emergency Provider Emergency Medicine; PCP Nurse Practitioner Family
DX: K40.91 Unilateral inguinal hernia, without obstruction or gangrene, recurrent (principal)
CPT/HCPCS: 99283

== ENCOUNTER 2023-02-25 11:50 | Outpatient (CLI) | payer OTHER, SELFPAY ==
--- NOTE | 2023-02-25 12:00 | XRR_ITS ---
PROCEDURE INFORMATION: Exam: XR Right Shoulder Exam date and time: 02/25/2023 12:09 PM Age: 32 years old Clinical indication: Pain and injury or trauma; Fall; Work related; Blunt trauma (contusions or hematomas); Shoulder; Right; Injury date: 2 days ago; Additional info: Right shoulder pain TECHNIQUE: Imaging protocol: Radiologic exam of the right shoulder. Views: 2 or more views. COMPARISON: CT cervical spin wo con* [id number] 08/29/2019 9:56 PM FINDINGS: Bones/joints: Normal. Soft tissues: Normal. XR/XR shoulder RT min 2V* [id number] IMPRESSION: No acute findings.
--- NOTE | 2023-02-25 12:01 | XRR_ITS ---
PROCEDURE INFORMATION: Exam: XR Lumbosacral Spine Exam date and time: 02/25/2023 12:09 PM Age: 32 years old Clinical indication: Pain and injury or trauma; Fall; Work related; Blunt trauma (contusions or hematomas); Low back pain; Injury date: 2 days ago; Additional info: Lbp TECHNIQUE: Imaging protocol: Radiologic exam of the lumbosacral spine. Views: 2 or 3 views. COMPARISON: CT lumbar spine wo con* [id number] 08/29/2019 11:38 PM FINDINGS: Bones/joints: Normal. No acute fracture. Normal alignment. Soft tissues: Unremarkable. XR/XR lumbar spine 2-3V* [id number] IMPRESSION: No acute findings.
== END 2023-02-25 11:51 | disposition home or self-care (01) ==
LOC: RAD 11:54
PROVIDERS: PCP Nurse Practitioner Family; Visit Provider Family Medicine
DX: M54.50 Low back pain, unspecified (principal); M25.511 Pain in right shoulder
CPT/HCPCS: 72100; 73030

== ENCOUNTER 2023-04-14 13:53 | Outpatient (RCR) | payer OTHER, SELFPAY | END 2023-04-27 23:59 | disposition home or self-care (01) | LOC: SPT 13:53 | PROVIDERS: PCP Family Medicine; Visit Provider Family Medicine | DX: M54.50 Low back pain, unspecified (principal); M25.511 Pain in right shoulder | CPT/HCPCS: 97110; 97162 ==

== ENCOUNTER → 2023-07-16 10:39 | Outpatient (BNVA) | payer MEDICAID, SELFPAY | PROVIDERS: PCP Nurse Practitioner Family; Visit Provider Nurse Practitioner Family | DX: K40.90 Unilateral inguinal hernia, without obstruction or gangrene, not specified as recurrent (principal); I10 Essential (primary) hypertension | CPT/HCPCS: 80053; 80061; 83036; 84443; 85025 ==

== ENCOUNTER → 2023-07-29 09:13 | Outpatient (BNVA) | payer MEDICAID, SELFPAY | PROVIDERS: PCP Nurse Practitioner Family; Visit Provider Nurse Practitioner Family | DX: I10 Essential (primary) hypertension (principal) | CPT/HCPCS: 85025 ==

== ENCOUNTER → 2023-08-25 09:20 | Outpatient (BNVA) | payer MEDICAID, SELFPAY | PROVIDERS: PCP Nurse Practitioner Family; Visit Provider Nurse Practitioner Family | DX: F17.200 Nicotine dependence, unspecified, uncomplicated (principal) | CPT/HCPCS: 85007; 85027 ==

== ENCOUNTER 2023-08-30 05:48 | Day surgery (SDC) | payer MEDICAID, SELFPAY ==
[2023-08-30] VITALS (10 sets, daily range): BP systolic 131–161; BP diastolic 64–101; PULSE 100–108; RESP 14–18; TEMP 36.2–37.2; O2SAT 90–99; BMI 36.1
--- NOTE | 2023-08-30 05:45 | W.PM.OPSFHP ---
Same Day Surgery H&P Indication for Procedure/HPI DATE OF PROCEDURE: August 30, 2023 CHIEF COMPLAINT/INDICATIONFOR SURGICAL PROCEDURE: right inguinal hernia PREOP DIAGNOSIS: right inguinal hernia PLANNED PROCEDURE: Operation Date: 08/30/23 07:00 Proposed Procedures p Laparoscopic Inguinal Hernia Repair /possible open with mesh 39330, K40.90(Right) - Julius Arrington MD Medications/Allergies* Allergies/Adverse Reactions Allergy/AdvReac Type Severity Reaction Status Date / Time No Known Allergies Allergy Verified 08/03/23 11:38 Pertinent History/Comorbid Conditions* Medical History (Updated 07/23/23 @ 07:14 by Gagan Roman MD) Low HDL (under 40) Smoker Seizure alcohol related Social History Smoking and tobacco/nicotine status: current every day tobacco/nicotine user Alcohol intake: current Pertinent Exam Findings alert, oriented x 3, clear to auscultation bilaterally and regular rate & rhythm Recommendations Surgery/Procedure today Coding Level of Care Code Acute Code for Chg Fwd
[2023-08-30] MEDS: sodium chloride 0.9% 1,000 ML 30 ML IV (06:39)
[2023-08-30] MEDS: ondansetron 2 mg/ML SDV 2 mL 4 MG IVP (06:39)
--- NOTE | 2023-08-30 06:52 | ANES.PREANE2 ---
Pre-Anesthetic Assessment Height/Weight: Height 1.78 m Weight 114.305 kg Temp Pulse Resp BP Pulse Ox O2 Del Method 99 F 101 H 18 147/98 97 Room Air 08/30/23 06:07 08/30/23 06:07 08/30/23 06:07 08/30/23 06:07 08/30/23 06:07 08/30/23 06:12 Preop Diagnosis: right inguinal hernia Operation Date: 08/30/23 07:00 Proposed Procedures p Laparoscopic Inguinal Hernia Repair /possible open with mesh 51643, K40.90(Right) - Julius Arrington MD Familial anesthetic complications: None Was Beta Madhuri taken within 24 hours: N/A Was Clonidine taken within 24 hours: N/A Last intake: Intake Last Liquid Date 08/29/23 Last Liquid Time 11:56 Last Solid Date 08/29/23 Last Solid Time 20:00 Social Tobacco and No alcohol previous etoh Exam alert, oriented x 3, clear to auscultation bilaterally and regular rate & rhythm Airway Mallampati: Class IV Dentition: chipped CV/HEM Hypertension Metabolic Morbid Obesity Anesthetic Plan ASA status: 2 Anesthesia: General Risk of > 500 ml blood loss (7ml/kg in children): No Medications/Allergies Home Medications Medication Instructions Recorded Confirmed Last Taken Type triamterene 37.5 1 tab PO QAM #90 tabs 07/16/23 08/26/23 08/30/23 Rx mg-hydrochlorothiazide 25 mg tablet Allergies Allergy/AdvReac Type Severity Reaction Status Date / Time No Known Allergies Allergy Verified 08/03/23 11:38 Current Medications Generic Name Dose Route Start Last Admin Trade Name Freq PRN Reason Stop Dose Admin Sodium Chloride 1,000 mls @ 30 mls/hr 08/30/23 06:45 08/30/23 06:39 Sodium Chloride 0.9% IV 08/31/23 06:44 30 mls/hr .Q24H ARETHA Administration Ondansetron HCl 4 mg 08/30/23 06:38 08/30/23 06:39 Ondansetron 2 Mg/Ml Sdv 2 Ml IVP 4 mg Q5M PRN Administration NAUSEA AND VOMITING PFSH Anesthesia Medical History Low HDL (under 40) Smoker Seizure alcohol related Social History Smoking and tobacco/nicotine status: current every day tobacco/nicotine user Alcohol intake: current Data Anesthesia Cardiac Studies: No Data to Display
[2023-08-30] MEDS: ceFAZolin 2,000 MG in sodium chloride 0.9% (plus) 50 ML 100 MG IV (06:57)
[2023-08-30] MEDS: BUPivacaine 0.25% INJ 10 mL INJECTION (07:36)
[2023-08-30] MEDS: lidocaine-epi 1% 20 mL INJ INJECTION (07:36)
--- NOTE | 2023-08-30 08:28 | P.OP_ITS ---
Operative Report Date of procedure: August 30, 2023 Pre-op diagnosis: Right inguinal hernia Post-op diagnosis: Right inguinal hernia Post-op findings: There was a large direct right inguinal hernia containing preperitoneal fat and part of the bladder. There was a large lipoma of the cord in the indirect space but no hernia identified there Procedure done: Laparoscopic total extraperitoneal repair of right inguinal hernia. Implants: Extra-large right-sided Bard 3D max mesh Surgeon: Julius Arrington MD Research Test Engine Operator: JAYCE OR Staff Estimated blood loss: 10 Complications: none Brief History: 33-year-old male with history of right inguinal hernia who presents for repair. I discussed the risk and benefits as documented in my preop note and we decided to proceed with a laparoscopic possible open repair Procedure: Patient was brought into the OR, he was placed in a supine position. General anesthesia was given. The abdomen was prepped and draped in the usual sterile fashion. Timeout was conducted. A 1.5 cm infraumbilical incision was made, the incision was deepened until the anterior rectus sheath was identified. The right anterior rectus sheath was opened with electrocautery, the rectus muscle was retracted laterally revealing the retrorectus space. A Spacemaker was inserted into the retrorectus space and carefully advanced to the level of the pubic bone. Under direct visualization the Spacemaker was open developing the preperitoneal space. A Spacemaker was then removed and replaced with a 12 mm balloon trocar. Additional 5 mm trocars were placed in the suprapubic and infraumbilical location under direct visualization. Upon immediate inspection of the preperitoneal space it was apparent that the patient had a large direct inguinal hernia. With blunt dissection I was able to reduce the hernia to the preperitoneal space, the hernia containing fat and also my portion of the bladder. Since the hernia was large I then proceeded to invert the hernia sac and I tacked the sac to the Ramón's ligament using secure strap. I then proceeded to develop the lateral space of [place], once the space was developed I proceeded to dissect the cord structures, a cord lipoma was noted and was reduced into the preperitoneal space. After this I evaluated the color structures and no evidence of hernia sac was noted at this level. The critical view of the myopectineal orifice was achieved. An extra-large Bard 3D max mesh was placed and fixed to the Ramón's ligament with secure strap. Under direct visualization the space was desufflated progressively to ensure adequate positioning of the mesh. Hemostasis was also verified. Trocars were then removed. The fascia of the umbilical trocar site was then closed with a 0 Vicryl. The wounds were closed in layers using #3-0 Vicryl for the subcutaneous tissue and #4 Monocryl for the skin. Dermabond was applied. At the end of the procedure all counts were correct, the patient tolerated well the procedure and was transferred to the PACU in stable condition.
--- NOTE | 2023-08-30 09:55 | ANE.PACU2 ---
Inpatient post-anesthesia follow up: Airway intact: Yes Vital signs: Temperature 97.2 F Pulse Rate 108 Respiratory Rate 18 Blood Pressure 131/89 Pulse Oximetry 94 Oxygen Delivery Me thod Room Air Oxygen Flow Rate 6 Fraction of Inspir ed Oxygen Hydration adequate: Yes Nausea and vomiting: No Pain level: 1 Mental status: Baseline
== END 2023-08-30 09:55 | disposition home or self-care (01) ==
PROVIDERS: PCP Nurse Practitioner Family; Visit Provider Surgery
PROC: (CPT 49650; principal; 2023-08-30 07:00)
DX: K40.90 Unilateral inguinal hernia, without obstruction or gangrene, not specified as recurrent (principal); F17.200 Nicotine dependence, unspecified, uncomplicated; I10 Essential (primary) hypertension; E66.01 Morbid (severe) obesity due to excess calories; Z68.36 Body mass index [BMI] 36.0-36.9, adult
CPT/HCPCS: 49650; 51702; C1781; J0330; J0690; J1100; J2250; J2371; J2405; J2704; J2710; J3010; J3490; J7030

== ENCOUNTER → 2024-03-02 13:09 | Outpatient (BNVA) | payer MEDICAID, SELFPAY | PROVIDERS: PCP Nurse Practitioner Family | DX: U07.1 COVID-19 (principal) | CPT/HCPCS: 87426 ==

== ENCOUNTER 2024-07-12 11:39 | Emergency (ER) | payer SELFPAY ==
[2024-07-12 11:45] VITALS: BP 163/110; PULSE 87; RESP 18; TEMP 36.6; O2SAT 97; BMI 31.0
--- NOTE | 2024-07-12 12:29 | ED_ITS ---
HPI - Dental/Oral General: Chief complaint: Dental/Oral Stated complaint: L side facial swelling, pain Time Seen by Provider: 07/12/24 12:03 History of Present Illness: 33-year-old male presents to the ER poppy f complaint of swelling and dental issues that started over the last week patient reports he cracked off tooth earlier this week in which he woke up with swelling to left side of his upper face infra orbital left eye patient reports no ocular involvement denies any fevers or chills reports no difficulty with swallowing he endorses no medication allergies, he has not followed up with dentistry as of yet patient denies any medication allergies he presents to the ER for further assessment and management. Associated symptoms: Denies fever(s) Related Data Previous Rx's ?Medication ?Instructions ?Recorded clindamycin HCl 300 mg capsule 300 mg PO Q8H 10 days # 30 caps 07/12/24 ibuprofen 600 mg tablet 600 mg PO TID PRN pain #20 t abs 07/12/24 lidocaine HCl 2 % mucosal solution 1 applic mucous mem brane Q4H PRN 07/12/24 (Lidocaine Viscous) pain #100 mL Allergies Allergy/AdvReac Type Severity Reaction Status Date / Time No Known Allergies Allergy Verified 07/12/24 11:46 Review of Systems General: Reports: 10 or more systems reviewed and unremarkable except in HPI and below Const: Denies: fever(s), chills, fatigue or malaise Eyes: Denies: change in vision or blurry vision ENMT: Reports: dental pain and sinus pain Card: Denies: chest pain or palpitations Resp: Denies: dyspnea or productive cough GI: Denies: abdominal pain, nausea or vomiting : Denies: flank pain Musc: Denies: extremity pain or extremity swelling Skin/Breast: Denies: rash or pruritus Neuro: Denies: headache(s) Psych: Denies: anxiety or depression Isaias/Lymph: Denies: easy bleeding All/Imm: Denies: urticaria, throat swelling or facial swelling PFSH ED PFSH: Medical History Low HDL (under 40) Smoker Seizure alcohol related Surgical History Hx of hernia repair Social History Smoking and tobacco/nicotine status: unknown if used tobacco/nicotine Alcohol intake: current Physical Exam Const: COMMON NORMALS: no acute distress, patient oriented x3 and healthy appearing HENMT: COMMON NORMALS: normocephalic and atraumatic; dentition not normal (Periapical abscess appreciated on the left side of the mouth with moderate ) HEAD & SCALP: normocephalic and atraumatic Eye: COMMON NORMALS: Equal, round and reactive pupils present and EOMs intact bilaterally PUPIL: Yes Equal, round and reactive pupils present Neck/C-Spine: COMMON NORMALS: full ROM, supple and no JVD Lymph: LYMPHATIC: No no lymphadenopathy noted and lymphadenopathy Chest: COMMONS NORMALS: normal inspection of the chest and normal palpation of entire chest wall Resp: COMMON NORMALS: normal respiratory effort, No retractions and clear to auscultation bilaterally EFFORT & INSPECTION: Yes able to speak in complete sentences and Yes symmetric chest movement AUSCULTATION: clear to a uscultation bilaterally Cardio: COMMON NORMALS: no JVD, regular rate and regular rhythm RATE: regular rate RHYTHM: regular rhythm GI: COMMON NORMALS: Normal to inspection, nondistended, normoactive bowel sounds present, Soft to palpation and non-tender INSPECTION: Yes normal to inspection PALPATION: Yes Soft to palpation : COMMON NORMALS: Yes no CVA tenderness BLADDER/KIDNEY EXAM: Yes no CVA tenderness Back/Pelvis: COMMON NORMALS: no CVA tenderness Extremity: COMMON NORMALS: normal to inspection and full ROM Neuro: COMMON NORMALS: patient oriented x3, CN's II-XII intact bilaterally, moves all extremities and no focal motor deficits Psych: COMMON NORMALS: mental status grossly normal, Normal thought process present, cooperative and normal affect THOUGHT PROCESS: Normal thought process present Skin: COMMON NORMALS: no rashes or lesions noted GENERAL SKIN EXAM: no rashes or lesions noted Course Vital Signs: Vital signs: Vital Signs Temperature 97.9 F 07/12/24 11:45 Pulse Rate 87 07/12/24 11:45 Respiratory Rate 18 07/12/24 11:45 Blood Pressure 163/110 07/12/24 11:45 Pulse Oximetry 97 07/12/24 11:45 Oxygen Delivery Me thod Room Air 07/12/24 11:45 MDM - Dental/Oral Medical Decision Making Patient will be started on oral clindamycin oral Decadron for his facial swelling and infection did advise further follow-up with dentistry in the next 1 week in which to return the interim if any of his symptoms persist or worse. No radiology studies performed this visit Discharge Plan Discharge Patient Disposition: Home Clinical Impression: Dental caries, Dental abscess Condition: Stable Prescriptions: New clindamycin HCl 300 mg capsule 300 mg PO Q8H 10 Days Qty: 30 0RF lidocaine HCl [Lidocaine Viscous] 2 % solution 1 applic mucous membrane Q4H PRN (Reason: pain) Qty: 100 0RF ibuprofen 600 mg tablet 600 mg PO TID PRN (Reason: pain) Qty: 20 0RF Discharge Orders: Discharge ED (Routine); Ordered 07/12/24 Ordered By: Martínez Flores Referrals: Dariana Cota FNP [Primary Care Provider, Family Practice] Discharge Diet: Advance as tolerated Discharge Activity: Increase activity as tolerated Patient Instructions: Dental Abscess (ED), Dental Caries (Cavities) Activity Restrictions/Additional Instructions: Please further follow-up your dentist next 1 week take medications as prescribed please return the interim if any of your symptoms persist or worse Print Language: [place] Coding Level of Care Code ED Senior Project Accountant for [employer]
[2024-07-12] MEDS: clindamycin 150 mg Capsule 300 MG PO (12:31)
[2024-07-12] MEDS: dexamethasone 10 mg/mL INJ 8 MG PO (12:32)
[2024-07-12 12:41] VITALS: BP 143/106; PULSE 88; O2SAT 98
[2024-07-12 13:10] VITALS: BP 148/102; PULSE 90; O2SAT 98
== END 2024-07-12 13:11 | disposition home or self-care (01) ==
PROVIDERS: Emergency Provider Emergency Medicine; PCP Nurse Practitioner Family
DX: K04.7 Periapical abscess without sinus (principal); K02.9 Dental caries, unspecified
CPT/HCPCS: 99283; J1100; J9999